=== PATIENT | male | born 1980 | race African-American/Black ===

== ENCOUNTER 2019-03-17 17:17 | Emergency (ER) | payer SELFPAY ==
[~2019-03-17] VITALS: Ht 175.3 cm; Wt 118.2 kg
[2019-03-17 17:23] VITALS: Ht 175.3 cm; Wt 118.2 kg
[2019-03-17] MEDS ORDERED: LOVENOX120 MG/0.8 SC (17:25)
[2019-03-17] MEDS ORDERED: FLAGYL500 MG PO (17:25)
[2019-03-17] MEDS ORDERED: VANCOCIN HCL250 MG PO (17:25)
[2019-03-17] MEDS ORDERED: DIFICID (17:26)
[2019-03-17 18:31] LABS: BASOPHILS 0 % (0-2); EOSINOPHILS 1.1 % (0-7); HEMOGLOBIN 12.9 g/dL (13.5-17.5); IMMATURE GRANULOCYTES 2.6 % (0-5); LYMPHOCYTES 29.9 % (15-50); MCH 28.9 pg (26.0-34.0); MCHC 33.9 g/dL (31.0-37.0); MCV 85.2 fL (80.0-100.0); MEAN PLATELET VOLUME 8.6 fL (7.4-10.4); MONOCYTES 8.6 % (2-11); NEUTROPHILS 57.8 % (40-80); PLATELET COUNT 219 10x3/uL (130-400); RBC 4.46 10x6/uL (4.20-6.10); RDW 14.5 % (11.5-14.5); WBC 9.8 10x3/uL (4.8-10.8)
[2019-03-17 18:49] LABS: ALBUMIN 3.5 g/dL (3.4-5.0); ALKALINE PHOSPHATASE 86 U/L (46-116); ALT (SGPT) 74 U/L (10-68); BILIRUBIN - TOTAL 0.31 mg/dL (0.2-1.3); CALC OSMOLALITY 280 mosm/kg (275-300); CALCIUM 8.5 mg/dL (8.5-10.1); CARBON DIOXIDE 25.8 mmol/L (21.0-32.0); CHLORIDE - SERUM 105 mmol/L (98-107); CREATININE - SERUM 0.9 mg/dL (0.6-1.3); GLUCOSE 89 mg/dL (74-106); POTASSIUM - SERUM 3.6 mmol/L (3.5-5.1); SODIUM 140 mmol/L (136-145); UREA NITROGEN 20 mg/dL (7-18); eGFR NON AFRICAN AMERICAN > 90 mL/min (90-120)
[2019-03-17 18:58] LABS: MAGNESIUM - SERUM 2.2 mg/dL (1.8-2.4); PRO BNP 49 pg/mL (0-125)
[2019-03-17] MEDS ORDERED: LASIX80 MG PO (18:58)
[2019-03-17] MEDS ORDERED: K-DUR20 MEQ PO (18:58)
[2019-03-17] MEDS ORDERED: METOLAZONE5 MG PO (18:58)
[2019-03-17] MEDS ORDERED: STERAPRED DS 1210 MG PO (18:58)
[2019-03-17 19:00] LABS: TROPONIN-I < 0.017 ng/mL (0.000-0.060)
[2019-03-17 20:25] VITALS: BP 132/70
== END 2019-03-17 20:25 | disposition home or self-care (01) ==
LOC: D.ER 17:17
PROVIDERS: Emergency Medicine
DX: K50.90 Crohn's disease, unspecified, without complications (principal); R60.9 Edema, unspecified